=== PATIENT | female | born 1995 | race Caucasian/White ===

== ENCOUNTER 2022-06-26 14:10 | Outpatient (REF) | payer BC, SELFPAY ==
[2022-06-26 15:20] LABS: Albumin* 4.6 g/dL (3.3-5.0)
[2022-06-26 15:23] LABS: Bilirubin Direct* 0.2 mg/dL (0.0-0.5); Bilirubin Total* 1.1 mg/dL (0.1-1.5)
[2022-06-26 15:24] LABS: Alanine Aminotransferase* 30 U/L (4-35); Alkaline Phosphatase* 80 U/L (40-150); Aspartate Amino Transferase* 31 U/L (12-35); Total Protein* 7.5 g/dL (6.0-8.3)
[2022-06-26 15:37] LABS: Barbiturate Screen Urine Negative (Negative); Benzodiazepines Screen Urine Negative (Negative); Cannabinoid Screen Urine Negative (Negative); Cocaine Screen Urine Negative (Negative); Methadone Screen Urine Negative (Negative); Methamphetamines Screen Urine Negative (Negative); Opiate Screen Urine Negative (Negative); Oxycodone Screen Urine Negative (Negative); Phencyclidine Screen Urine Negative (Negative); Tricyclic Antidepressant Urine Negative (Negative)
[2022-06-27 08:11] LABS: Amphetamine Screen Urine POSITIVE (Negative)
== END 2022-06-26 14:11 | disposition home or self-care (01) ==
LOC: NPINS 14:10
DX: Z79.899 Other long term (current) drug therapy (principal)
CPT/HCPCS: 80076; 80306

== ENCOUNTER 2023-05-08 09:11 | Outpatient (CLI) | payer BC, SELFPAY ==
--- NOTE | 2023-05-08 09:15 | CRLHL7_ITS ---
For Patients: As a result of the Cures Act, medical imaging exams and procedure reports are released immediately into your electronic medical record. You may view this report before your referring provider. If you have questions, please contact your health care provider. LEFT BREAST ULTRASOUND CLINICAL HISTORY: LEFT breast lump. COMPARISON: None. TECHNIQUE: Real-time ultrasound imaging of LEFT breast with imaging documentation. FINDINGS: Targeted sonogram LEFT breast 10 o`clock 2 cm from the nipple performed in the area of concern. Normal fibroglandular tissue is present. No fibrocystic change or mass. IMPRESSION: Normal breast tissue. No suspicious findings. RECOMMENDATIONS: Clinical follow-up. Results and recommendations were discussed with the patient at the time of the exam. BI-RADS Category 1: Negative A lay language report of this examination will be provided to the patient. Dictated by Fei Arana MD @ 05/08/2023 12:16:58 PM jj/Dictated by: Fei Arana MD @ 05/08/2023 12:16:00 PM (Electronically Signed)
== END 2023-05-08 09:12 | disposition home or self-care (01) ==
LOC: US 09:12
PROVIDERS: Visit Provider Physician Assistant
DX: N63.20 Unspecified lump in the left breast, unspecified quadrant (principal)
CPT/HCPCS: 76642

== ENCOUNTER 2023-05-13 15:16 | Outpatient (REF) | payer BC, SELFPAY ==
[2023-05-13 17:12] LABS: Chloride* 103 mmol/L (96-114); Sodium* 139 mmol/L (135-149)
[2023-05-13 17:14] LABS: Iron* 125 ug/dL (37-170)
[2023-05-13 17:15] LABS: Anion Gap 8 mEq/L (7-15); Blood Urea Nitrogen* 14 mg/dL (5-24); Carbon Dioxide* 28 mmol/L (20-32); Cholesterol* 185 mg/dL (90-199); Creatinine* 0.6 mg/dL (0.5-1.5); Estimated Glomerular Filt Rate 125 ml/min
[2023-05-13 17:16] LABS: Calcium* 9.3 mg/dL (8.4-10.6); Glucose* 99 mg/dL (60-115); HDL Cholesterol* 60 mg/dL (>=50); LDL Cholesterol Calculated 110 mg/dL (<100); Magnesium* 1.8 mg/dL (1.5-2.6); Triglycerides* 73 mg/dL (40-149)
[2023-05-13 17:33] LABS: Vitamin D 25 Hydroxy* 33 ng/mL (30-80)
[2023-05-13 17:34] LABS: Free T4 Free Thyroxine* 1.23 ng/dL (0.70-1.85)
[2023-05-13 17:47] LABS: Thyroid Stimulating Hormone* 0.056 uIU/mL (0.270-4.20)
[2023-05-13 17:51] LABS: Ferritin* 24.9 ng/mL (6.24-137.0)
[2023-05-13 18:07] LABS: Vitamin B12* 563 pg/mL (243-894)
[2023-05-15 22:35] LABS: Total T3 122 ng/dL (80-200)
[2023-05-16 04:59] LABS: Folate, Serum 11.4 ng/mL (>=5.9)
[2023-05-16 07:33] LABS: Zinc, Serum/Plasma 77.3 ug/dL (60.0-120.0)
== END 2023-05-13 15:17 | disposition home or self-care (01) ==
LOC: NPINS 15:16
DX: F90.0 Attention-deficit hyperactivity disorder, predominantly inattentive type (principal); F41.1 Generalized anxiety disorder; F33.0 Major depressive disorder, recurrent, mild; Z79.899 Other long term (current) drug therapy
CPT/HCPCS: 80048; 80061; 82306; 82607; 82728; 82746; 83036; 83540; 83735; 84439; 84443; 84480; 84630

== ENCOUNTER 2023-08-13 07:59 | Outpatient (CLI) | payer BC, SELFPAY | END 2023-08-13 08:00 | disposition home or self-care (01) | LOC: NFLDREF 08-14 11:49 | PROVIDERS: PCP Physician Assistant Medical; Referring Provider Physician Assistant Medical; Visit Provider Physician Assistant Medical | DX: E05.90 Thyrotoxicosis, unspecified without thyrotoxic crisis or storm (principal) | CPT/HCPCS: 84443 ==

== ENCOUNTER 2023-09-02 08:56 | Outpatient (CLI) | payer BC, SELFPAY | END 2023-09-02 08:57 | disposition home or self-care (01) | PROVIDERS: PCP Physician Assistant Medical; Visit Provider Physician Assistant | DX: R63.4 Abnormal weight loss (principal) | CPT/HCPCS: 80053; 86140 ==

== ENCOUNTER 2023-11-04 15:44 | Outpatient (CLI) | payer BC, SELFPAY | END 2023-11-04 15:45 | disposition home or self-care (01) | PROVIDERS: PCP Physician Assistant Medical; Visit Provider Physician Assistant Medical | DX: R63.4 Abnormal weight loss (principal); M25.50 Pain in unspecified joint; R53.83 Other fatigue; Z11.59 Encounter for screening for other viral diseases | CPT/HCPCS: 80053; 82728; 84443; 86039; 86200; 86231; 86258; 86364; 86376; 86431; 86592; 86618; 86703; 86803; 86812; 87468; 87469; 87484; 87798 ==